=== PATIENT | female | born 1990 | race Hispanic/Latino ===

== ENCOUNTER 2023-08-14 02:18 | Emergency (ER) | payer OTHER ==
[~2023-08-14] VITALS: Ht 157.5 cm; Wt 66.7 kg
[2023-08-14 02:21] VITALS: BP 129/82; PULSE 76; RESP 18
[2023-08-14 02:53] LABS: BASOPHILS # (AUTO) 0.05 K/uL (0.00-0.20); BASOPHILS % (AUTO) 0.7 % (0.0-5.0); EOSINOPHILS # (AUTO) 0.16 K/uL (0.00-0.70); EOSINOPHILS % (AUTO) 2.1 % (0.0-8.0); HEMATOCRIT 40.1 % (36-48); IMMATURE GRANULOCYTE ABSOLUTE 0.01 K/uL (0-1); LYMPHOCYTES % (AUTO) 39.1 % (21.0-51.0); MEAN CORPUSCULAR HEMOGLOBIN 29.9 pg (27.0-33.0); MEAN CORPUSCULAR HGB CONC 33.9 g/dL (32.0-36.0); MEAN CORPUSCULAR VOLUME 88.1 fL (79-99); MONOCYTES # (AUTO) 0.6 K/uL (0.1-1.0); MONOCYTES % (AUTO) 8.1 % (3.0-13.0); NEUTROPHILS # (AUTO) 3.8 K/uL (1.8-7.7); NEUTROPHILS % (AUTO) 49.9 % (40.0-77.0); PLATELET COUNT (AUTO) 300 K/uL (130-400); RED BLOOD CELL COUNT(AUTO) 4.55 MIL/uL (4.00-5.50); RED CELL DISTRIBUTION WIDTH 12.2 % (11.0-15.5); WHITE BLOOD COUNT (AUTO) 7.6 K/uL (4.8-10.8)
[2023-08-14 02:57] LABS: APPEARANCE,URINE CLEAR (CLEAR); BILIRUBIN,URINE NEGATIVE (NEGATIVE); COLOR,URINE COLORLESS (YELLOW); GLUCOSE, URINE (UA) NEGATIVE (NEGATIVE); KETONES,URINE 10 mg/dL (NEGATIVE); LEUKOCYTE ESTERASE ,URINE NEGATIVE Leu/uL (NEGATIVE); NITRATE,URINE NEGATIVE (NEGATIVE); OCCULT BLOOD,URINE NEGATIVE (NEGATIVE); PH,URINE 5.5 (5.0-8.0); PROTEIN,URINE NEGATIVE (NEGATIVE); UROBILINOGEN,URINE 0.2 mg/dL (0.2-1.0)
[2023-08-14 03:05] LABS: ADD UA MICROSCOPIC NO
[2023-08-14 03:06] LABS: POTASSIUM 3.6 mmol/L (3.5-5.1)
[2023-08-14 03:06] LABS: HCG,QUALITATIVE URINE NEGATIVE (NEGATIVE)
[2023-08-14 03:11] LABS: BILIRUBIN,TOTAL 0.5 mg/dL (0.2-1.0); TOTAL PROTEIN, SERUM 8.1 g/dL (6.0-8.3)
[2023-08-14] MEDS ORDERED: MORPHINE 4 MG SYG IVP ONE (03:30)
[2023-08-14] MEDS ORDERED: LACTATED RINGERS 1000ML 1,000 ML IV ONE (03:30)
== END 2023-08-14 04:52 | disposition home or self-care (01) ==
LOC: EDH 02:18
DX: K80.50 Calculus of bile duct without cholangitis or cholecystitis without obstruction (principal)
CPT/HCPCS: 99285; 96374; 76705; 96361; 80053; 83690; 85025; 81003; 81025; 36415; J7120; J2270